=== PATIENT | female | born 2005 | race Caucasian/White ===

== ENCOUNTER 2024-08-07 15:17 | Outpatient (CLI) | payer BC, SELFPAY ==
[2024-08-07] VITALS (14 sets, daily range): BP systolic 133; BP diastolic 89; PULSE 106–127; O2SAT 93–99
--- NOTE | 2024-08-07 16:26 | CRLHL7_ITS ---
For Patients: As a result of the Cures Act, medical imaging exams and procedure reports are released immediately into your electronic medical record. You may view this report before your referring provider. If you have questions, please contact your health care provider. INDICATION: Fall. No additional clinical history is provided. COMPARISON: None available. TECHNIQUE: Grayscale pelvic ultrasound via a transabdominal approach. FINDINGS: number: 1 Position: Cephalic. Placental Position: Posterior. No sonographic findings to indicate placental abruption on the limited images obtained. Amniotic fluid: DVP 6.4cm. heart rate: 159bpm. BPP Score: Fluid: 2 Breathin Movement: 2 Tone: 2 Total: 6 IMPRESSION: Normal BPP score (6/8), with no points given for absent breathing movements. Dictated by Tomas Quinn MD @ 08/07/2024 8:14:41 PM (Electronically Signed)
--- NOTE | 2024-08-07 17:19 | P.OBLDTN_ITS ---
OB - Triage/Final Diagnosis Visit Information Time Seen by Provider: 17:56 Date Seen: 08/07/24 Date of evaluation: 08/07/24 Narrative: The patient is a 18 year old 2 para 0 at 28.6 weeks gestation, who presents with syncopal episode in shower. She is accompanied by her partner. Patient has been sick with URI symptoms since Tuesday. She has congestion, mild cough. She had sweats last night that make her think she may have had a fever. She had evaluation at [facility] 08/05 with negative COVID and FLU swabs. She has been using tylenol prn for pain. Used hydroxyzine last night for sleep. She has been drinking water. Not eating much. Patient was finishing a shower this afternoon at 2pm and felt dizzy. She grabbed the shower handle and had syncopal episode. She had toast prior to syncopal episode. Has felt fine since then without return of dizziness. Her buttock hurt, so she feels he most likely hit her bottom. Does not think she hit her abdomen. She feels normal movement. Her partner came to her assistance and helped her up from the shower. States I hurt all over but this has been for longer than illness. Gets low abdominal pain, low back pain, joint pain. She reports her round ligament pain has been intense. She has no contractions, bleeding, loss of fluid. She reports her wrists and hands hurt. She also has pain in the SI joints. Evaluation Vital signs: Vital Signs - 24 hr 08/07/24 15:24 08/07/24 15:29 08/07/24 15:33 Pulse Rate 113 H Blood Pressure 133/89 Pulse Oximetry 99 97 08/07/24 15:34 08/07/24 15:39 08/07/24 15:44 Pulse Rate Blood Pressure Pulse Oximetry 97 96 96 08/07/24 15:49 08/07/24 15:54 08/07/24 15:54 Pulse Rate Blood Pressure Pulse Oximetry 97 97 93 08/07/24 15:59 08/07/24 16:04 08/07/24 16:10 Pulse Rate Blood Pressure Pulse Oximetry 98 98 98 08/07/24 16:15 08/07/24 16:20 08/07/24 16:25 Pulse Rate Blood Pressure Pulse Oximetry 98 98 98 Comments: HEENT: tm bulging, non erythematous. Sinuses nontender. Throat is mildly erythematous Heart: Mildly tachycardic (103), no murmur Lungs: CTAB Abdomen: Gravid, nontender over abdomen. Does have tenderness over pubic sym phisis. Ext: Neg edema Back: Tender at SI joints bilaterally. Fetus (Single) Heart Rate Baseline: 150 Supervisor [employer] Variability: Moderate (6-25) Monitor Accelerations: Present (10x10) Monitor Decelerations: None Final Diagnosis (1) Syncope: Status: Acute Problem details: Syncope following shower, had warning symptoms making it most likely vasovagal syncope. Discussed she is likely dehydrated and should be drinking more fluids and taking warm not hot showers. If recurrent syncopal episodes, labs may be warranted. Feels better since episode. (2) 28 weeks gestation of : Status: Acute Problem details: BPP was 6/8 (2 off for breathing). NST was reactive (total score 8/10). Monitored x 4 hours for possible abdominal trauma with syncope (fall at 14:15, monitored until 1814). Having a lot of discomfort-- SI joint, pubic symphysis pain. May benefit from PT referral. (3) Viral URI with cough: Status: Acute Problem details: Discussed ongoing supportive cares. Tylenol, hydroxyzine, electrolyte beverages, humidified air. No indication for abx, still likely viral. HR improved to 102 during evaluation. Total Time Spent Total Time Spent: 45 minutes
--- NOTE | 2024-08-07 18:37 | PC.OBNST ---
NST Note NST Note Start: 08/07/24 18:35 Freq: ONCE Status: Active Protocol: Document 08/07/24 18:36 MARY (Rec: 08/07/24 18:37 MARY Desktop) NST Note 2 Para (# of births) 0 EDC 10/24/24 Gestational Age In Weeks & Days 28 Weeks & 6 Days Patient Presented with Complaint(s) of Other Other Complaints Passed out and fell in shower Reactive Yes Appropriate for Gestational Age Yes YURIDIA Reyes RN Date 08/07/24 Reactive Yes Appropriate for Gestational Age Yes YURIDIA Mccullough RN Date 08/07/24 OB NST charge Yes Complete NST Note via Write Note Yes The provider's electronic signature indicates the NST is reactive/appropriate for gestational age. *Note to provider: If an addendum is required, open the patient's chart and click on the note under the Nurse/Allied Health tab.
== END 2024-08-07 18:25 | disposition home or self-care (01) ==
LOC: OB OUT 15:18 → OB 15:19
PROVIDERS: PCP Family Medicine; Visit Provider Family Medicine
DX: O26.893 Other specified pregnancy related conditions, third trimester (principal); R55 Syncope and collapse; Z3A.28 28 weeks gestation of pregnancy
CPT/HCPCS: 59025; 76819; G0463

== ENCOUNTER 2024-08-22 15:48 | Outpatient (CLI) | payer BC, SELFPAY ==
[2024-08-22] VITALS (27 sets, daily range): BP systolic 129–166; BP diastolic 66–107; PULSE 71–100; RESP 16; TEMP 36.7; O2SAT 96
[2024-08-22] MEDS: ACETAMINOPHEN 500 MG TABLET 1000 MG PO (16:42)
[2024-08-22 16:53] LABS: Hematocrit* 36.2 % (33.0-51.0); Hemoglobin* 12.3 gm/dL (12.0-16.0); Mean Corpuscular HGB Conc 34 gm/dL (32-36); Mean Corpuscular Hemoglobin 29 pg (26-34); Mean Corpuscular Volume 86 fL (80-100); Platelet Count* 331 K/uL (140-440); Red Blood Count* 4.19 m/uL (4.00-5.20); Slide Review Reflex No; White Blood Count* 11.74 K/uL (4.50-11.00)
[2024-08-22 17:06] LABS: Alanine Aminotransferase* 18 U/L (4-35); Aspartate Amino Transferase* 25 U/L (12-35); Blood Urea Nitrogen* 14 mg/dL (5-24); Creatinine* 0.6 mg/dL (0.6-1.2); Estimated Glomerular Filt Rate 133 ml/min; Total Protein Urine 23 mg/dL
[2024-08-22 18:28] LABS: Creatinine Urine 98.6 mg/dL; Protein Creatinine Ratio Urine 0.23 (0-0.19)
[2024-08-22] MEDS: LABETALOL HCL 5 MG/ML inj IVP (18:53)
[2024-08-22] MEDS: LACTATED RINGERS 1000 ML 1,000 ML 75 ML IV (18:58)
[2024-08-22] MEDS: MAGNESIUM IV 4 GM/100 ML PIGGYBACK IVPB (18:59)
[2024-08-22] MEDS: BETAMETHASONE SOD PHOS/ACETATE 6 MG/ML ML 12 MG IM (19:23)
[2024-08-22] MEDS: MAGNESIUM Infusion 40 GM/1,000 ML IV.SOLN IVPB (19:28)
--- NOTE | 2024-08-22 19:40 | W.PM.OBTRAN ---
History of Present Illness History of Present Illness Date Seen: 08/22/24 History of Present Illness: 18 year old at 31 weeks gestation by 7 week US, [facility] 10/24/2024, presents with headache, swelling in hands and legs an elevated BP at home to 160/110. Patient reports her headache and swelling developing yesterday evening. She forgot to mention this at her visit and US today, but upon returning home, discussed the REBOLLEDO with her SO's mother who recommended checking her BP. Upon arrival to the center, she had a BP of 151/96 with subsequent readings between 130-160s/80-100s. After several readings in 160s/90-100s, one dose of IV labetalol 20 mg given just before 1900, IV magnesium started and one dose of Betamethasone given. her REBOLLEDO has not improved despite 1000 mg acetaminophen. Labs, fortunately are all within normal. Discussed case with secured entrance monitor perinatologist who approved transfer to [place] for further evaluation, monitoring and mangement. 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 More recent US concerning for growth restriction and abnormal dopplars. Repeat US with MPP this morning was reassuring in that regard. EFW 1497 grams, percentile: 16 with normal dopplars. Baby moving naturally: Yes Bleeding: No Contractions: No Leaking fluid: No Discharge: No Heartburn: No Back pain: No Meds Home Medications and Allergies Home Medications ?Medication ?Instructions ?Recorded ?Confirmed ?Type hydroxyzine HCl 25 mg tablet 25 - 50 mg PO Q6H PRN anxiety 08/07/24 08/22/24 History ondansetron 4 mg disintegrating 4 mg PO Q8H PRN nausea/vomiting 08/07/24 08/22/24 History tablet venlafaxine 37.5 mg 37.5 mg PO DAILY 08/07/24 08/22/24 History capsule,extended release 24 hr aspirin 81 mg capsule 81 mg PO DAILY 08/22/24 08/22/24 History vits,calcium 91-iron 28 pkg PO DAILY 08/22/24 History mg-folic 975 mcg-dha 200 mg oral pack ( + DHA) Allergies Allergy/AdvReac Type Severity Reaction Status Date / Time amoxicillin (From Augmentin) Allergy Hives Verified 08/22/24 16:59 clavulanic acid (From Allergy Hives Verified 08/22/24 16:59 Augmentin) [facility] Medical History (Updated 08/22/24 @ 19:58 by Aparna Sher MD) Substance use disorder ?F19.90 - Other psychoactive substance use, unspecified, uncomplicated (ICD-10) Essential thrombocytopenia ?D69.3 - Immune thrombocytopenic purpura (ICD-10) History of von Willebrand disease ?Z86.2 - Personal history of diseases of the blood and blood-forming organs and certain disorders involving the immune mechanism (ICD-10) PTSD (post-traumatic stress disorder) ?F43.10 - Post-traumatic stress disorder, unspecified (ICD-10) MDD (major depressive disorder) ?F32.9 - Major depressive disorder, single episode, unspecified (ICD-10) Gestational HTN ?O13.9 - Gestational [-induced] hypertension without significant proteinuria, unspecified trimester (ICD-10) 31 weeks gestation of ?Z3A.31 - 31 weeks gestation of (ICD-10) Social History Smoking Status: Current every day smoker History History 2 Elective abortions Para 0 Spontaneous abortions Hx # Term Pregnancies Ectopic pregnancies Hx # Pregnancies Multiple births Number of Living Children 0 OB - H&P: Exam Physical Exam Vital signs: Temp Pulse Resp BP Pulse Ox 98.1 F 86 16 141/76 H 96 08/22/24 16:05 08/22/24 19:28 08/22/24 16:05 08/22/24 19:28 08/22/24 16:01 Constitutional Constitutional: no acute distress Routine HEENT Exam Head: Present atraumatic Routine Respiratory Exam Respiratory: Present CTA bilaterally Routine Cardiovascular Exam Cardiovascular: RRR Detailed Labor and Delivery Exam Patient Gravid: Yes Fetus (Single) Heart Rate Baseline: 140 Monitor Accelerations: Present Monitor Decelerations: None [employer] Variability: Moderate (6-25) Routine Extremities Exam Comments: non pitting edema to mid culp bilaterally. Routine Neurological Exam Present alert, oriented X3, normal reflexes and clonus (1 beat bilateral ankles) Routine Psychiatric Exam Present anxious Results Labs Laboratory Tests 08/22/24 Range/Units 16:32 WBC 11.74 H (4.50-11.00) K/uL RBC 4.19 (4.00-5.20) m/uL Hgb 12.3 (12.0-16.0) gm/dL Hct 36.2 (33.0-51.0) % MCV 86 (80-100) fL MCH 29 (26-34) pg MCHC 34 (32-36) gm/dL Plt Count 331 (140-440) K/uL BUN 14 (5-24) mg/dL Creatinine 0.6 (0.6-1.2) mg/dL Estimated GFR 133 ml/min AST 25 (12-35) U/L ALT 18 (4-35) U/L Urine Creatinine 98.6 mg/dL Protein/Creatinin Ratio 0.23 H (0-0.19) Urine Total Protein 23 mg/dL Assessment and Plan Assessment and plan (1) Gestational HTN: Status: Acute (2) 31 weeks gestation of : Status: Acute Plan Patient with new onset HTN, several severe range BP and REBOLLEDO unrelieved with acetaminophen. 31 weeks gestation. IV labetalol per protocol. Magnesium started given severe range BP. Betamethasone x1 given in case delivery is imminent. Transfer to [facility] for ongoing management.
--- NOTE | 2024-08-22 22:23 | PC.OBNST ---
NST Note NST Note Start: 08/22/24 16:29 Freq: ONCE Status: Active Protocol: Document 08/22/24 22:17 FJZ (Rec: 08/22/24 22:23 FJZ [id number]) NST Note 2 Para (# of births) 0 EDC 10/24/24 Gestational Age In Weeks & Days 31 Weeks & 0 Days High Risk Factors High Blood Pressure - Gestational Patient Presented with Complaint(s) of Other Other Complaints High BP at home. High blood pressures on admission- Pre Eclampsia. Magnesium infusion started. Transferred to [place] , [facility] Baby. Reactive Yes YURIDIA Cunha RN Date 08/22/24 Reactive Yes YURIDIA Batista RN Date 08/22/24 OB NST charge Yes Complete NST Note via Write Note Yes The provider's electronic signature indicates the NST is reactive/appropriate for gestational age. *Note to provider: If an addendum is required, open the patient's chart and click on the note under the Nurse/Allied Health tab.
== END 2024-08-22 21:40 | disposition short-term general hospital (02) ==
LOC: OB OUT 15:50 → OB 15:51
PROVIDERS: PCP Family Medicine; Visit Provider Family Medicine
DX: O13.3 Gestational [pregnancy-induced] hypertension without significant proteinuria, third trimester (principal); Z3A.31 31 weeks gestation of pregnancy
CPT/HCPCS: 36415; 59025; 82565; 82570; 84156; 84450; 84460; 84520; 85027; G0463; A9270; J0702; J3475; J7120

== ENCOUNTER 2024-08-22 21:35 | Outpatient (CLI) | payer BC, SELFPAY | END 2024-08-22 21:36 | disposition home or self-care (01) | LOC: AMB 08-27 13:54 | PROVIDERS: PCP Family Medicine; Visit Provider Emergency Medicine | DX: O14.93 Unspecified pre-eclampsia, third trimester (principal); Z3A.31 31 weeks gestation of pregnancy | CPT/HCPCS: A0425; A0434 ==